=== PATIENT | female | born 1985 | race Caucasian/White ===

== ENCOUNTER 2024-04-18 06:08 | Outpatient (CLI) | payer OTHER ==
[2024-04-18 07:27] LABS: URINE APPEARANCE Clear; URINE BILIRRUBIN Negative (NEGATIVE); URINE BLOOD Negative; URINE COLOR Yellow; URINE GLUCOSE Negative (NEGATIVE); URINE KETONE Negative (NEGATIVE); URINE LEUKOCYTE Trace; URINE NITRATE Negative; URINE PROTEIN Negative (NEGATIVE); URINE UROBILINOGEN 0.2 E.U./dl
[2024-04-18 07:28] LABS: URINE BACTERIA 3402.6 uL (0.0-1933); URINE EPITHELIAL CELLS 88.6 uL (0.0-38.8); URINE RBC 8.5 uL (0.0-20.8); URINE WBC 51.2 uL (0.0-23.2)
[2024-04-18 07:31] LABS: HEMATOCRIT 38.3 % (36.0-45.00); HEMOGLOBIN 12.6 g/dL (12.0-15.00); MEAN CELL VOLUME 79.2 fL (80.00-100.00); MEAN CORPUSCULAR HGB CONC 32.8 g/dl (32.0-36.0); PLATELET COUNT 302 K/uL (150-450); RED BLOOD COUNT 4.84 M/uL (4.00-6.00); RED CELL DISTRIBUTION WIDTH 15.9 % (11.5-14.5)
[2024-04-18 07:48] LABS: URINE CAST 0.73 uL (0.0-1.40)
[2024-04-18 08:23] LABS: ALBUMIN 3.3 gm/dL (3.4-5.0); BILIRUBIN TOTAL 0.28 mg/dL (0.3-1.2); CALCIUM 8.7 mg/dL (8.5-10.1); CHOL HDL RATIO 4.1 (0-5.0); CREATININE SERUM 0.8 mg/dL (0.55-1.02); GFR 79.44; GLOBULINA 3.5 G/DL (2.4-3.5); POTASSIUM 3.67 mEq/L (3.5-5.1); T4 TOTAL 8.9 UG/DL (4.8-13.9); TOTAL PROTEIN 6.8 gm/dL (6.4-8.2); TSH 3.54 uIU/mL (0.358-3.74)
[2024-04-18 10:45] LABS: T3 TOTAL 1.38 ng/ml (0.846-2.02); VITAMIN D3 25 HYDROXY 21.17 ng/ml (30-120)
== END 2024-04-18 06:17 | disposition home or self-care (01) ==
LOC: LAB 06:08
PROVIDERS: ATTEND Orthopaedic Surgery
DX: E55.9 Vitamin D deficiency, unspecified (principal)